=== PATIENT | male | born 1955 | race Caucasian/White ===

== ENCOUNTER 2018-04-22 11:09 | Observation (INO) ==
--- NOTE | 2018-04-22 13:02 | ED ---
HPI General Chief Complaint: Syncope Stated Complaint: Fainting Time Seen by Provider: 04/22/18 12:37 Source: patient Mode of arrival: ambulatory Limitations: no limitations History of Present Illness HPI narrative: 63-year-old male poor historian presents emergency department for evaluation of multiple presyncopal and simple episodes over the last year. Says he was at his rehab facility today for his chronic neck and back pain when he had a presyncopal episode and he was advised to come to the emergency department for evaluation. Patient has chronic neck and back pain and follows neurosurgery, Dr. Plata, and [facility]. Patient has couple days ago he was in his driveway when he felt faint and collapsed likely hitting his head on the concrete. He does not know how long he was out. Currently he has no complaints. Denies headache, blurred vision, fever, chills, chest pain, abdominal pain. He has had multiple knee surgeries and believes this has caused neuropathy pain in his legs. Says he drinks 3-4 alcoholic drinks per week. Denies current tobacco use. Denies use of pain medications except for very sparingly. Says he follows Dr. Ceballos, cardiology and had a stress test within the last year. His primary care physician is Dr. Conner. Related Data Home Medications Medication Instructions Recorded Confirmed diltiazem HCl [Cardizem CD] 240 mg PO DAILY 04/22/18 04/22/18 gabapentin 600 mg PO BID 04/22/18 04/22/18 lisinopril-hydrochlorothiazide 0.5 - 1 tab PO DAILY 04/22/18 04/22/18 warfarin [Coumadin] 2.5 mg PO QPM 04/22/18 04/22/18 Allergies Allergy/AdvReac Type Severity Reaction Status Date / Time No Known Allergies Allergy NONE Uncoded 04/22/18 12:53 Review of Systems Except as stated in HPI: all other systems reviewed are negative FORMERLY [facility] Medical History Medical History Back pain (Acute) Chronic pain (Acute) Hypertension (Acute) Neck pain (Acute) Neuropathy (Acute) Pulmonary embolism (Acute) Family History Family History Other Family hx of lung cancer Social History Social History Substance History: No History of Abuse Second Hand Smoke Exposure: No Smoking Status: Never smoker How Often Do You Have a Drink Containing Alcohol: 4 or more times a week Recent Travel in [facility] within the Last 8 Weeks: No Recent Out of Country Travel within the Last 8 Weeks: No Course Initial Documented Vital Signs Temperature 97.5 F L 04/22/18 11:32 Pulse Rate 104 H 04/22/18 11:32 Respiratory Rate 18 04/22/18 11:32 Blood Pressure 101/55 L 04/22/18 11:32 Pulse Oximetry 97 04/22/18 11:32 Last Documented Vital Signs Temperature 97.5 F L 04/22/18 11:32 Pulse Rate 88 04/22/18 13:48 Respiratory Rate 16 04/22/18 13:48 Blood Pressure 94/53 L 04/22/18 13:48 Pulse Oximetry 97 04/22/18 13:48 Medical Decision Making MDM Narrative Medical decision making narrative: 63-year-old male presents emergency department with a 6 month history of presyncopal and syncopal episodes. Says that over the last couple days he has had increased falls and had an episode of syncope for which he had a unknown period of unconsciousness. He has hit his head multiple times and he does take Coumadin for previous history of PE. Labs and imaging studies ordered. Note that his blood pressure is on the low side and he becomes tachycardic upon standing. Says that he had an MRI of his neck for evaluation of his chronic neck pain within the last year but does not mention any issues regarding his carotid arteries. Says that he follows Dr. Plata for neurosurgery regarding his low back and neck pain. Denies current tobacco use. Drinks approximately 4 times weekly, 3-4 drinks per day. I recommend patient be admitted for observation. I am concerned about his frequent falls on Coumadin therapy. Patient also has peripheral neuropathy which he says makes him unsteady on his feet. The period time for his unsteadiness has been 6 months and patient believes it is related to his neck pain. He denies neck or back surgeries previously. He does follow Dr. Plata however, has not addressed this concern with him. He has addressed this concern with his primary care physician but it is unknown if he has had imaging related to this problem. He says that he had an MRI of his neck to evaluate for his neck pain but again does not mention evaluation of his carotids or any other workup. I spoke with Dr. Burnett who agreed to this admission. Differential Diagnosis Differential Diagnosis: ICH, dehydration, anemia Lab Data Result diagrams: 04/22/18 13:20 04/22/18 13:20 Lab Results 04/22/18 04/22/18 04/22/18 Range/Units 13:20 13:20 13:20 WBC 6.8 (4.0-11.0) th/mm3 RBC 3.66 L (4.50-5.90) mil/mm3 Hgb 12.5 L (13.0-17.0) gm/dL Hct 36.8 L (39.0-51.0) % MCV 100.6 H (80.0-100.0) fL MCH 34.1 H (27.0-34.0) pg MCHC 33.9 (32.0-36.0) % RDW 15.7 (11.6-17.2) % Plt Count 222 (150-450) th/mm3 MPV 8.9 (7.0-11.0) fL Neut % (Auto) 68.2 (16.0-70.0) % Lymph % (Auto) 20.0 (9.0-44.0) % [place] % (Auto) 11.0 H (0.0-8.0) % Eos % (Auto) 0.5 (0.0-4.0) % Baso % (Auto) 0.3 (0.0-2.0) % Neut # (Auto) 4.6 (1.8-7.7) th/mm3 Lymph # (Auto) 1.4 (1.0-4.8) th/mm3 [place] # (Auto) 0.7 (0.0-0.9) th/mm3 Eos # (Auto) 0.0 (0.0-0.4) th/mm3 Baso # (Auto) 0.0 (0.0-0.2) th/mm3 WBC Differential . Differential Comment Auto diff final PT 20.8 H (9.8-11.6) sec INR 2.1 Ratio APTT 40.2 H (24.3-30.1) sec Sodium 132 L (136-145) meq/L Potassium 3.8 (3.5-5.1) meq/L Chloride 95 L (98-107) meq/L Carbon Dioxide 24.9 (21.0-32.0) meq/L Anion Gap 12 (5-15) meq/L BUN 28 H (7-18) mg/dL Creatinine 1.86 H (0.60-1.30) mg/dL Estimated GFR 37 L (>89) mL/min Random Glucose 110 H (74-106) mg/dL Calcium 9.1 (8.5-10.1) mg/dL Magnesium 2.1 (1.5-2.5) mg/dL Total Bilirubin 0.9 (0.2-1.0) mg/dL AST 155 H (15-37) U/L ALT 207 H (12-78) U/L Alkaline Phosphatase 81 (45-117) U/L Ammonia (11-32) mcmol/L Total Protein 7.3 (6.4-8.2) g/dL Albumin 3.4 (3.4-5.0) g/dL Urine Color (Yellw/Straw) Urine Clarity (Clear) Urine pH (5.0-8.5) Ur Specific [place] (1.002-1.035) Urine Protein (Neg-Trace) mg/dL Urine Glucose (UA) (Negative) mg/dL Urine Ketones (Negative) mg/dL Urine Occult Blood (Negative) Urine Nitrate (Negative) Urine Bilirubin (Negative) Urine Urobilinogen (Less than 2) mg/dL Ur Leukocyte Esterase (Negative) Urine RBC (0-3) /hpf Urine WBC (0-5) /hpf Ur Squamous Epith Cells (0-5) /hpf Calcium Oxalate Crystal (None) /hpf Urine Bacteria (None) /hpf Hyaline Casts (0-3) /lpf Urine Mucus (Occasional) /lpf Micro UA Comment Urine Culture Comments 04/22/18 04/22/18 Range/Units 13:20 15:35 WBC (4.0-11.0) th/mm3 RBC (4.50-5.90) mil/mm3 Hgb (13.0-17.0) gm/dL Hct (39.0-51.0) % MCV (80.0-100.0) fL MCH (27.0-34.0) pg MCHC (32.0-36.0) % RDW (11.6-17.2) % Plt Count (150-450) th/mm3 MPV (7.0-11.0) fL Neut % (Auto) (16.0-70.0) % Lymph % (Auto) (9.0-44.0) % [place] % (Auto) (0.0-8.0) % Eos % (Auto) (0.0-4.0) % Baso % (Auto) (0.0-2.0) % Neut # (Auto) (1.8-7.7) th/mm3 Lymph # (Auto) (1.0-4.8) th/mm3 [place] # (Auto) (0.0-0.9) th/mm3 Eos # (Auto) (0.0-0.4) th/mm3 Baso # (Auto) (0.0-0.2) th/mm3 WBC Differential Differential Comment PT (9.8-11.6) sec INR Ratio APTT (24.3-30.1) sec Sodium (136-145) meq/L Potassium (3.5-5.1) meq/L Chloride (98-107) meq/L Carbon Dioxide (21.0-32.0) meq/L Anion Gap (5-15) meq/L BUN (7-18) mg/dL Creatinine (0.60-1.30) mg/dL Estimated GFR (>89) mL/min Random Glucose (74-106) mg/dL Calcium (8.5-10.1) mg/dL Magnesium (1.5-2.5) mg/dL Total Bilirubin (0.2-1.0) mg/dL AST (15-37) U/L ALT (12-78) U/L Alkaline Phosphatase (45-117) U/L Ammonia 18 (11-32) mcmol/L Total Protein (6.4-8.2) g/dL Albumin (3.4-5.0) g/dL Urine Color [place] (Yellw/Straw) Urine Clarity Cloudy H (Clear) Urine pH 5.0 (5.0-8.5) Ur Specific [place] 1.015 (1.002-1.035) Urine Protein 30 H (Neg-Trace) mg/dL Urine Glucose (UA) 50 (Negative) mg/dL Urine Ketones Negative (Negative) mg/dL Urine Occult Blood Negative (Negative) Urine Nitrate Negative (Negative) Urine Bilirubin Negative (Negative) Urine Urobilinogen 4 or greater (Less than 2) mg/dL Ur Leukocyte Esterase Negative (Negative) Urine RBC 1 (0-3) /hpf Urine WBC 2 (0-5) /hpf Ur Squamous Epith Cells 1 (0-5) /hpf Calcium Oxalate Crystal Occasional H (None) /hpf Urine Bacteria Rare H (None) /hpf Hyaline Casts 28 (0-3) /lpf Urine Mucus Few H (Occasional) /lpf Micro UA Comment Culture not ind Urine Culture Comments Culture not ind Imaging Data Radiologist's impression: ITS Impressions Cervical Spine CT 04/22/18 12:51 CONCLUSION: 1. No acute bony fracture. 2. There are moderate degenerative changes throughout the cervical spine with disc degeneration and disc space narrowing at C5-6 and C6-7. 3. There is broad-based bulging at multiple levels with disc osteophyte complexes. 4. 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 Head CT 04/22/18 12:51 CONCLUSION: 1. No focal or acute intracranial hemorrhage. 2. Bilateral cortical atrophy, left greater than right. Chest X-Ray 04/22/18 12:54 CONCLUSION: No acute intrathoracic disease. Stable examination. Discharge Plan Discharge Disposition Patient Disposition: 30 Still Patient Discharge Condition Condition: Stable Discharge Details Discharge Problem: Syncope and collapse Physicians Team ED Provider: Carter Farrar ED Midlevel Provider: Aurea Velazco Primary Care Provider: Johny Conner Attending Provider: Sue Tapia Discharge Interventions Interventions: Vital Signs Last Done: 04/22/18 13:48 Status ED Status: Admitted Observation Patient
[2018-04-22 13:52] LABS: Baso % (Auto) 0.3 % (0.0-2.0); Eos % (Auto) 0.5 % (0.0-4.0); Hematocrit 36.8 % (39.0-51.0); Hemoglobin 12.5 gm/dL (13.0-17.0); Lymph # (Auto) 1.4 th/mm3 (1.0-4.8); Mean Corpuscular HGB Conc 33.9 % (32.0-36.0); Mean Corpuscular Hemoglobin 34.1 pg (27.0-34.0); Mean Corpuscular Volume 100.6 fL (80.0-100.0); Mean Platelet Volume 8.9 fL (7.0-11.0); Mono # (Auto) 0.7 th/mm3 (0.0-0.9); Neut # (Auto) 4.6 th/mm3 (1.8-7.7); Neut % (Auto) 68.2 % (16.0-70.0); Platelet Count 222 th/mm3 (150-450); Red Blood Count 3.66 mil/mm3 (4.50-5.90); Red Cell Distribution Width 15.7 % (11.6-17.2); White Blood Count 6.8 th/mm3 (4.0-11.0)
[2018-04-22 14:00] LABS: Activated Partial Thrombo Time 40.2 sec (24.3-30.1); INR 2.1 Ratio; Prothrombin Time 20.8 sec (9.8-11.6)
--- NOTE | 2018-04-22 14:03 | XR ---
EXAM DATE: 04/22/2018 1:49 PM EDT AGE/SEX: 63 years / Male INDICATIONS: Syncope with shortness of breath. CLINICAL DATA: This is the patient's initial encounter. Patient reports that signs and symptoms have been present for 1 day and indicates a pain score of 0/10. MEDICAL/SURGICAL HISTORY: None. None. COMPARISON: [facility] [place], CHEST PA & LAT, 09/15/2012. . FINDINGS: A single AP view of the chest demonstrates the lungs to be symmetrically aerated without evidence of mass, infiltrate or effusion. The cardiomediastinal contours are unremarkable. Osseous structures a re intact. CONCLUSION: No acute intrathoracic disease. Stable examination. Electronically signed by: Zion No MD 04/22/2018 2:02 PM EDT
--- NOTE | 2018-04-22 14:09 | CT ---
EXAM DATE: 04/22/2018 2:00 PM EDT AGE/SEX: 63 years / Male INDICATIONS: Syncope episode, multiple fall. Head and neck pain. CLINICAL DATA: This is the patient's initial encounter. Patient reports that signs and symptoms have been present for 1 day and indicates a pain score of 5/10. MEDICAL/SURGICAL HISTORY: None. None. RADIATION DOSE: 36.92 CTDI (mGy) COMPARISON: No prior exams available for comparison. TECHNIQUE: CT of the head without contrast. Using automated exposure control and adjustment of the mA and/or kV according to patient size, radiation dose was kept as low as reasonably achievable to ob tain optimal diagnostic quality images. DICOM format image data is available electronically for revi ew and comparison. FINDINGS: Cerebrum: The ventricles are normal for age. There is bilateral cortical atrophy, left greater than right. No evidence of midline shift, mass lesion, hemorrhage or acute infarction. No extraaxial flu id collections are seen. Posterior Fossa: The cerebellum and brainstem are intact. The 4th ventricle is midline. The cerebe llopontine angle is unremarkable. Extracranial: The visualized portion of the orbits is intact. Skull: The calvaria is intact. No evidence of skull fracture. CONCLUSION: 1. No focal or acute intracranial hemorrhage. 2. Bilateral cortical atrophy, left greater than right. Electronically signed by: Zion No MD 04/22/2018 2:08 PM EDT
[2018-04-22 14:10] LABS: Alkaline Phosphatase 81 U/L (45-117); Total Protein 7.3 g/dL (6.4-8.2)
[2018-04-22 14:27] LABS: Alanine Aminotransferase 207 U/L (12-78); Albumin 3.4 g/dL (3.4-5.0); Anion Gap 12 meq/L (5-15); Aspartate Aminotransferase 155 U/L (15-37); Blood Urea Nitrogen 28 mg/dL (7-18); Calcium 9.1 mg/dL (8.5-10.1); Carbon Dioxide 24.9 meq/L (21.0-32.0); Chloride 95 meq/L (98-107); Glomerular Filtration Rate 37 mL/min (>89); Glucose,Random 110 mg/dL (74-106); Magnesium 2.1 mg/dL (1.5-2.5); Potassium 3.8 meq/L (3.5-5.1); Sodium 132 meq/L (136-145)
--- NOTE | 2018-04-22 14:48 | CT ---
EXAM DATE: 04/22/2018 2:32 PM EDT AGE/SEX: 63 years / Male INDICATIONS: Syncope episode, with multiple falls. Neck and head pain. CLINICAL DATA: This is the patient's initial encounter. Patient reports that signs and symptoms have been present for 1 day and indicates a pain score of 5/10. MEDICAL/SURGICAL HISTORY: None. None. RADIATION DOSE: 19.98 CTDI (mGy) COMPARISON: No prior exams available for comparison. TECHNIQUE: Contiguous axial images were obtained using helical multirow detector technique. The vol umetric data was post-processed with multiplanar reconstruction in oblique axial, sagittal, and coron al planes. Using automated exposure control and adjustment of the mA and/or kV according to patient s ize, radiation dose was kept as low as reasonably achievable to obtain optimal diagnostic quality mateus ges. DICOM format image data is available electronically for review and comparison. FINDINGS: Vertebrae: Normal vertebral body height. There are primary degenerative changes throughout the cervi hemalatha spine. There is disc space narrowing at C5-6 and C6-7. No acute bony fracture is demonstrated. Alignment: Normal. No subluxation. C2-3: The bony spinal canal is normal in size. No evidence of disc bulge or herniation. The neural foramina are bilaterally patent. C3-4: Broad-based bulging with disc osteophyte complex. Mild narrowing of the neural foramina bilate rally. C4-5: The bony spinal canal is normal in size. No evidence of disc bulge or herniation. Mild narrow ing of the right neural foramina. The left neural foramina is patent. C5-6: Broad-based bulging with disc osteophyte complex. There is some narrowing of the right neural foramina. The left neural foramina appears patent. There is bilateral facet arthritis. C6-7: Diffuse broad-based bulging with disc osteophyte complex. There is mild narrowing of the neura l foramina bilaterally, left greater than right. There is bilateral facet arthritis. C7-T1: The bony spinal canal is normal in size. No evidence of disc bulge or herniation. The neura l foramina are bilaterally patent. Bilateral facet arthritis. CONCLUSION: 1. No acute bony fracture. 2. There are moderate degenerative changes throughout the cervical spine with disc degeneration and disc space narrowing at C5-6 and C6-7. 3. There is broad-based bulging at multiple levels with disc osteophyte complexes. 4. 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 Electronically signed by: Zion No MD 04/22/2018 2:47 PM EDT
--- NOTE | 2018-04-22 16:16 | ED ---
HPI General Chief Complaint: Syncope Stated Complaint: Fainting Time Seen by Provider: 04/22/18 12:37 Source: patient Mode of arrival: ambulatory Limitations: no limitations Related Data Home Medications Medication Instructions Recorded Confirmed diltiazem HCl [Cardizem CD] 240 mg PO DAILY 04/22/18 04/22/18 gabapentin 600 mg PO BID 04/22/18 04/22/18 lisinopril-hydrochlorothiazide 0.5 - 1 tab PO DAILY 04/22/18 04/22/18 warfarin [Coumadin] 2.5 mg PO QPM 04/22/18 04/22/18 Allergies Allergy/AdvReac Type Severity Reaction Status Date / Time No Known Allergies Allergy NONE Uncoded 04/22/18 12:53 FORMERLY [facility] Medical History Medical History Back pain (Acute) Chronic pain (Acute) Neck pain (Acute) Neuropathy (Acute) Pulmonary embolism (Acute) Social History Social History Substance History: No History of Abuse Second Hand Smoke Exposure: No Smoking Status: Never smoker How Often Do You Have a Drink Containing Alcohol: 4 or more times a week Recent Travel in [facility] within the Last 8 Weeks: No Recent Out of Country Travel within the Last 8 Weeks: No Immunization History Tetanus Immunization: <5 Years Hx Influenza Vaccine This Season: Unable to Assess Course Initial Documented Vital Signs Temperature 97.5 F L 04/22/18 11:32 Pulse Rate 104 H 04/22/18 11:32 Respiratory Rate 18 04/22/18 11:32 Blood Pressure 101/55 L 04/22/18 11:32 Pulse Oximetry 97 04/22/18 11:32 Last Documented Vital Signs Temperature 97.5 F L 04/22/18 11:32 Pulse Rate 88 04/22/18 13:48 Respiratory Rate 16 04/22/18 13:48 Blood Pressure 94/53 L 04/22/18 13:48 Pulse Oximetry 97 04/22/18 13:48 Medical Decision Making LOIDA Attestation LOIDA supervised visit: Yes Attestation: I, Dr. Farrar, have reviewed the advance practice practitioner's documentation and am in agreement, met with the patient face to face, made the diagnosis, and the medical decision making was done by me. *My assessment and Findings: This patient's had multiple months of presyncopal episodes and syncope. Workup here is reviewed. He will be a 23 hour observation on telemetry for evaluation of syncope which has been recurrent. Patient does have chronic pain but that seems unchanged. Lab Data Result diagrams: 04/22/18 13:20 04/22/18 13:20 Lab Results 04/22/18 04/22/18 04/22/18 Range/Units 13:20 13:20 13:20 WBC 6.8 (4.0-11.0) th/mm3 RBC 3.66 L (4.50-5.90) mil/mm3 Hgb 12.5 L (13.0-17.0) gm/dL Hct 36.8 L (39.0-51.0) % MCV 100.6 H (80.0-100.0) fL MCH 34.1 H (27.0-34.0) pg MCHC 33.9 (32.0-36.0) % RDW 15.7 (11.6-17.2) % Plt Count 222 (150-450) th/mm3 MPV 8.9 (7.0-11.0) fL Neut % (Auto) 68.2 (16.0-70.0) % Lymph % (Auto) 20.0 (9.0-44.0) % [place] % (Auto) 11.0 H (0.0-8.0) % Eos % (Auto) 0.5 (0.0-4.0) % Baso % (Auto) 0.3 (0.0-2.0) % Neut # (Auto) 4.6 (1.8-7.7) th/mm3 Lymph # (Auto) 1.4 (1.0-4.8) th/mm3 [place] # (Auto) 0.7 (0.0-0.9) th/mm3 Eos # (Auto) 0.0 (0.0-0.4) th/mm3 Baso # (Auto) 0.0 (0.0-0.2) th/mm3 WBC Differential . Differential Comment Auto diff final PT 20.8 H (9.8-11.6) sec INR 2.1 Ratio APTT 40.2 H (24.3-30.1) sec Sodium 132 L (136-145) meq/L Potassium 3.8 (3.5-5.1) meq/L Chloride 95 L (98-107) meq/L Carbon Dioxide 24.9 (21.0-32.0) meq/L Anion Gap 12 (5-15) meq/L BUN 28 H (7-18) mg/dL Creatinine 1.86 H (0.60-1.30) mg/dL Estimated GFR 37 L (>89) mL/min Random Glucose 110 H (74-106) mg/dL Calcium 9.1 (8.5-10.1) mg/dL Magnesium 2.1 (1.5-2.5) mg/dL Total Bilirubin 0.9 (0.2-1.0) mg/dL AST 155 H (15-37) U/L ALT 207 H (12-78) U/L Alkaline Phosphatase 81 (45-117) U/L Ammonia (11-32) mcmol/L Total Protein 7.3 (6.4-8.2) g/dL Albumin 3.4 (3.4-5.0) g/dL 04/22/18 Range/Units 13:20 WBC (4.0-11.0) th/mm3 RBC (4.50-5.90) mil/mm3 Hgb (13.0-17.0) gm/dL Hct (39.0-51.0) % MCV (80.0-100.0) fL MCH (27.0-34.0) pg MCHC (32.0-36.0) % RDW (11.6-17.2) % Plt Count (150-450) th/mm3 MPV (7.0-11.0) fL Neut % (Auto) (16.0-70.0) % Lymph % (Auto) (9.0-44.0) % [place] % (Auto) (0.0-8.0) % Eos % (Auto) (0.0-4.0) % Baso % (Auto) (0.0-2.0) % Neut # (Auto) (1.8-7.7) th/mm3 Lymph # (Auto) (1.0-4.8) th/mm3 [place] # (Auto) (0.0-0.9) th/mm3 Eos # (Auto) (0.0-0.4) th/mm3 Baso # (Auto) (0.0-0.2) th/mm3 WBC Differential Differential Comment PT (9.8-11.6) sec INR Ratio APTT (24.3-30.1) sec Sodium (136-145) meq/L Potassium (3.5-5.1) meq/L Chloride (98-107) meq/L Carbon Dioxide (21.0-32.0) meq/L Anion Gap (5-15) meq/L BUN (7-18) mg/dL Creatinine (0.60-1.30) mg/dL Estimated GFR (>89) mL/min Random Glucose (74-106) mg/dL Calcium (8.5-10.1) mg/dL Magnesium (1.5-2.5) mg/dL Total Bilirubin (0.2-1.0) mg/dL AST (15-37) U/L ALT (12-78) U/L Alkaline Phosphatase (45-117) U/L Ammonia 18 (11-32) mcmol/L Total Protein (6.4-8.2) g/dL Albumin (3.4-5.0) g/dL Imaging Data Radiologist's impression: ITS Impressions Cervical Spine CT 04/22/18 12:51 CONCLUSION: 1. No acute bony fracture. 2. There are moderate degenerative changes throughout the cervical spine with disc degeneration and disc space narrowing at C5-6 and C6-7. 3. There is broad-based bulging at multiple levels with disc osteophyte complexes. 4. 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 Head CT 04/22/18 12:51 CONCLUSION: 1. No focal or acute intracranial hemorrhage. 2. Bilateral cortical atrophy, left greater than right. Chest X-Ray 04/22/18 12:54 CONCLUSION: No acute intrathoracic disease. Stable examination. Discharge Plan Discharge Disposition Patient Disposition: 30 Still Patient Discharge Details Discharge Problem: Syncope and collapse Physicians Team ED Provider: Carter Farrar ED Midlevel Provider: Aurea Velazco Primary Care Provider: Johny Conner Rxs /Orders / Referrals /Forms Prescriptions: No Action gabapentin 600 mg Tablet 600 mg PO BID RF: 0 diltiazem HCl [Cardizem CD] 240 mg Capsule,Extended Release 24hr 240 mg PO DAILY RF: 0 warfarin [Coumadin] 2.5 mg Tablet 2.5 mg PO QPM RF: 0 lisinopril-hydrochlorothiazide 10-12.5 mg Tablet 0.5 - 1 tab PO DAILY RF: 0 Status ED Status: With Doctor
[2018-04-22 16:35] LABS: Bacteria,Urine Rare /hpf; Bilirubin,Urine Negative (Negative); Calcium Oxalate Crystals,Urine Occasional /hpf; Clarity,Urine Cloudy (Clear); Color,Urine Amber (Yellw/Straw); Glucose,Urine (UA) 50 mg/dL (Negative); Hyaline Casts,Urine 28 /lpf (0-3); Leukocyte Esterase,Urine Negative (Negative); Mucus,Urine Few /lpf (Occasional); Nitrite,Urine Negative (Negative); Specific Gravity,Urine 1.015 (1.002-1.035); Squamous Epithelial Cell,Urine 1 /hpf (0-5); Urobilinogen,Urine 4 or Greater mg/dL (Less than 2)
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
[2018-04-22] MEDS ORDERED: Sod Chloride 0.9% Inj 1,000 ML IV.SIG ONE (17:03)
[2018-04-22] MEDS ORDERED: Haloperidol Inj 5 MG/ML Ampul IV.PUSH PRN (17:40)
[2018-04-22 21:23] LABS: Amphetamine Screen,Urine Neg (Neg); Barbiturate Screen,Urine Neg (Neg); Cannabinoid Screen,Urine Pos (Neg); Cocaine Screen,Urine Neg (Neg)
[2018-04-22 21:29] LABS: Opiate Screen,Urine Neg (Neg)
[2018-04-22] MEDS: Gabapentin 300 MG Capsule PO SCH (21:32)
--- NOTE | 2018-04-23 06:40 | MB ---
cc: Johny Zuñiga MD, PhD DATE: 04/23/2018 REASON FOR CONSULTATION: Syncope, history of cervical fracture. HISTORY OF PRESENT ILLNESS: Mr. Jett is a very nice 63-year-old man who has a history of cervical spine fracture. He states he has been having several episodes of loss of consciousness, usually upon standing. He gets lightheaded. One episode, he got out of his truck, it was hot, felt lightheaded, lost consciousness for a fairly brief period of time. He also feels weak in his legs, difficulty walking. He has neuropathy, relates numbness in his feet, trouble walking up steps. He states he has a history of cervical fracture diagnosed in the past, not requiring any type of surgical treatment. 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 According to the chart, atrial fibrillation. CURRENT MEDICATIONS: 1. Cardizem 240 mg daily. 2. Romazicon p.r.n. 3. Gabapentin 600 mg b.i.d. 4. Haldol p.r.n. 5. HydroDIURIL 6.25 mg daily. 6. Lisinopril 5 mg daily. 7. Ativan as needed. 8. Thiamine 100 mg b.i.d. 9. Coumadin 2.5 mg daily. NEUROLOGICAL EXAMINATION: VITAL SIGNS: Blood pressure is 93/59, pulse is 81, respiratory rate is 18, temperature 98 degrees. HIGHER CORTICAL FUNCTIONS: Normal. CRANIAL NERVES: 2-12 are normal in detail. MOTOR EXAM: He has got 5/5 strength in all groups in both upper extremities. He does have weakness in the lower extremities rated at 4/5 proximally and distally. Reflexes are symmetric with no Babinski. Sensory exam is diminished in both lower extremities. IMAGING STUDIES: CT of the brain: Atrophy, no acute change present. CT cervical spine: No acute fracture or degenerative disk disease is seen at C5-C6 and C6-C7. Broad-based disk bulging at multiple levels. No significant stenosis is identified. LABORATORY DATA: The white count of 6800; hemoglobin 12.5: hematocrit 36.8%; platelet count 222,000. PT 20.8, INR 2.1, APTT 40.2. Sodium is 132, potassium 3.8, chloride 95, CO2 of 24.9, BUN is 28, creatinine 1.86, GFR is 37, glucose 110, AST 155, ALT is 207. Urinalysis: The pH is 5, specific gravity 1.015, protein is 30, glucose is 50. IMPRESSION: 1. Syncope. The history suggests orthostatic hypotension. This could be due to neuropathy, possibly with autonomic involvement, possible dehydration as well based on his BUN and creatinine. 2. Cervical fracture. Rule out cervical myelopathy. RECOMMENDATIONS: We will get an MRI of the brain, as well as MRI cervical spine. Check orthostatic blood pressure and pulse. We will get a carotid ultrasound and echocardiogram. Johny Zuñiga MD, PhD JOHNATHAN/KAYA , 06:06 AM , 06:39 AM
[2018-04-23] MEDS: Gabapentin 300 MG Capsule PO SCH ×2 (08:54→20:30)
[2018-04-23] MEDS: dilTIAZem CD 240 MG Capsule PO SCH (08:54)
[2018-04-23] MEDS: Lisinopril 5 MG Tablet PO SCH ×2 (08:57→08:59)
[2018-04-23] MEDS ORDERED: hydroCHLOROthiazide 25 MG Tablet PO SCH (09:00)
[2018-04-23] MEDS ORDERED: Gadobenate Dimeglumine PF Inj 20 ML VIAL (for RAD MRI) IVCONTRAST ONE (09:30)
[2018-04-23 09:31] LABS: Anion Gap 11 meq/L (5-15); Aspartate Aminotransferase 114 U/L (15-37); Blood Urea Nitrogen 26 mg/dL (7-18); Calcium 9.7 mg/dL (8.5-10.1); Carbon Dioxide 24.4 meq/L (21.0-32.0); Chloride 101 meq/L (98-107); Glomerular Filtration Rate 67 mL/min (>89); Glucose,Random 79 mg/dL (74-106); Potassium 3.5 meq/L (3.5-5.1); Sodium 136 meq/L (136-145)
[2018-04-23 09:32] LABS: Alanine Aminotransferase 175 U/L (12-78); Baso % (Auto) 0.7 % (0.0-2.0); Eos # (Auto) 0.1 th/mm3 (0.0-0.4); Eos % (Auto) 1.6 % (0.0-4.0); Hematocrit 33.2 % (39.0-51.0); Hemoglobin 11.3 gm/dL (13.0-17.0); Lymph % (Auto) 26.1 % (9.0-44.0); Mean Corpuscular HGB Conc 34.1 % (32.0-36.0); Mean Corpuscular Hemoglobin 34.4 pg (27.0-34.0); Mean Platelet Volume 8.3 fL (7.0-11.0); Mono # (Auto) 0.4 th/mm3 (0.0-0.9); Mono % (Auto) 9.5 % (0.0-8.0); Neut # (Auto) 2.4 th/mm3 (1.8-7.7); Neut % (Auto) 62.1 % (16.0-70.0); Platelet Count 186 th/mm3 (150-450); Red Blood Count 3.29 mil/mm3 (4.50-5.90); Red Cell Distribution Width 15.7 % (11.6-17.2); White Blood Count 3.8 th/mm3 (4.0-11.0)
[2018-04-23 09:34] LABS: Alkaline Phosphatase 74 U/L (45-117)
--- NOTE | 2018-04-23 09:50 | MR ---
EXAM DATE: 04/23/2018 9:42 AM EDT AGE/SEX: 63 years / Male INDICATIONS: Pain. Chronic neck pain. CLINICAL DATA: This is the patient's initial encounter. Patient reports that signs and symptoms have been present for 4 - 6 months and indicates a pain score of 5/10. MEDICAL/SURGICAL HISTORY: Hypertension. Total knee replacement, left. Total knee replacement, right. COMPARISON: [facility] [place], CT CERVICAL SPINE W/O CONTRAST, 04/22/2018. . TECHNIQUE: Multiplanar, multisequence MRI examination of the cervical spine was performed without co ntrast. FINDINGS: Vertebrae: Normal vertebral body height. Homogeneous marrow signal. Alignment: Normal. Cord: Normal configuration and signal. Post Fossa: The cerebellar tonsils are normal in position. C2-C3: The thecal sac has a normal configuration. There is no evidence of disc herniation or spinal canal stenosis. The neural foramina are patent bilaterally. C3-C4: Mild broad-based protrusion abuts the ventral thecal sac without canal stenosis. Mild bilater al neural foraminal narrowing. C4-C5: The thecal sac has a normal configuration. There is no evidence of disc herniation or spinal canal stenosis. Uncovertebral spurring causes mild to moderate bilateral neural foraminal narrowing. C5-C6: Mild broad-based protrusion slightly eccentric the left abuts the ventral thecal sac. No gladys l stenosis. Uncovertebral spurring causes moderate to severe bilateral neural foraminal narrowing gre ater on the left C6-C7: Mild broad-based protrusion abuts the ventral thecal sac without canal stenosis. Uncovertebra l spurring causes moderate bilateral neural foraminal narrowing. C7-T1: No epidural impressions seen. CONCLUSION: 1. Multilevel protrusions without canal stenosis. 2. Uncovertebral spurring at multiple levels causing neural foraminal narrowing as described above. Electronically signed by: Elkin Kim MD 04/23/2018 9:49 AM EDT
--- NOTE | 2018-04-23 09:53 | MR ---
EXAM DATE: 04/23/2018 9:47 AM EDT AGE/SEX: 63 years / Male INDICATIONS: Frequent falls. Syncope. CLINICAL DATA: This is the patient's initial encounter. Patient reports that signs and symptoms have been present for 4 - 6 months and indicates a pain score of 0/10. MEDICAL/SURGICAL HISTORY: Hypertension. Total knee replacement, left. Total knee replacement, right. COMPARISON: . TECHNIQUE: Multiplanar, multisequence examination of the brain was performed without and with 16 ml M ultihance (gadobenate) contrast as a single exam dose. FINDINGS: Cerebrum: No acute infarction, midline shift or mass effect. No extra axial fluid collections. Ventr icles are mildly prominent consistent with atrophy. White Matter: No significant signal abnormalities are seen in the white matter. Posterior Fossa: The cerebellum and brainstem are intact. The 4th ventricle is midline. The cerebel lopontine angle is unremarkable. The cerebellar tonsils are normal in position. Diffusion Imaging: No focal areas of restricted diffusion are seen. No evidence of acute infarction . Extracranial: The visualized portions of the orbits and paranasal sinuses are unremarkable. Post Contrast: No abnormal areas of parenchymal or dural enhancement. No evidence of blood-brain ba rrier breakdown. CONCLUSION: 1. Cerebral atrophy. 2. No acute intracranial abnormality. 3. No acute infarction. Electronically signed by: Elkin Kim MD 04/23/2018 9:51 AM EDT
--- NOTE | 2018-04-23 10:17 | US ---
EXAM DATE: 04/23/2018 10:09 AM EDT AGE/SEX: 63 years / Male INDICATIONS: Syncope. CLINICAL DATA: This is the patient's initial encounter. Patient reports that signs and symptoms have been present for 1 day and indicates a pain score of 0/10. MEDICAL/SURGICAL HISTORY: . Hypertension. Neuropathy. Pulmonary embolism. . Bilateral knee r eplacement. COMPARISON: No prior exams available for comparison. VELOCITY PARAMETERS: ICA/CCA Ratio: Right 0.8 , Left 1.0 ICA: Right 67 cm/sec, Left 85 cm/sec CCA: Right 79 cm/sec, Left 90 cm/sec ECA: Right 67 cm/sec, Left 49 cm/sec Vertebral: Right 36 cm/sec antegrade, Left 47 cm/sec antegrade FINDINGS: Right Carotid: Mild arteriosclerotic plaque is visualized.The waveforms are within normal limits. Left Carotid: Mild arteriosclerotic plaque is visualized. The waveforms are within normal limits. Other: None. CONCLUSION: No hemodynamically significant stenosis in either carotid artery Electronically signed by: Elkin Kim MD 04/23/2018 10:16 AM EDT
[2018-04-23 10:35] LABS: Hepatitis A IgM Antibody Nonreactive (Nonreactive); Hepatitits B Surface Antigen Nonreactive (Nonreactive)
--- NOTE | 2018-04-23 10:43 | ECG ---
Date Performed: 04/22/2018 Time Performed: 13:56:57 PTAGE: 63 years EKG: Sinus rhythm NORMAL ECG PREVIOUS TRACING : 09/14/2012 02.33 No significant change from previous tracing noted. DOCTOR: Soy Hook Interpretating Date/Time 04/23/2018 10:42:09
--- NOTE | 2018-04-23 12:58 | P.PNADD ---
Addendum to Inpatient Note Reason for Addendum: Additional Documentation Additional information: Please see the resident H/P for additional information regarding the patients history. Patient was admitted for syncope and pre-syncope which sounds like may be chronic for the past several months with continued increasing debility. Patient reports no changes since admission. C/o Back and neck pain and also continued dizziness when standing. Denies CP, SOB, changes in bowels/bladder. Vital Signs Temp Pulse Resp BP Pulse Ox 04/23/18 09:00 93/63 L 95 04/23/18 08:00 97.5 F L 78 18 93/63 L 04/23/18 03:02 98.4 F 73 18 94/50 L 98 04/22/18 23:30 98.1 F 81 18 93/59 L 97 04/22/18 20:30 75 98 04/22/18 20:00 97.3 F L 89 18 95/62 L 97 04/22/18 17:13 94 H 16 112/70 97 04/22/18 13:48 88 16 94/53 L 97 04/22/18 13:36 96 Intake and Output 04/22/18 04/23/18 04/23/18 22:59 06:59 14:59 Other: Date of Last Bowel Movement 04/22/[address] 04/22/18 12:51 CONCLUSION: 1. No acute bony fracture. 2. There are moderate degenerative changes throughout the cervical spine with disc degeneration and disc space narrowing at C5-6 and C6-7. 3. There is broad-based bulging at multiple levels with disc osteophyte complexes. 4. 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 Head CT 04/22/18 12:51 CONCLUSION: 1. No focal or acute intracranial hemorrhage. 2. Bilateral cortical atrophy, left greater than right. Chest X-Ray 04/22/18 12:54 CONCLUSION: No acute intrathoracic disease. Stable examination. Carotid Doppler Study 04/23/18 00:00 CONCLUSION: No hemodynamically significant stenosis in either carotid artery Cervical Spine MRI 04/23/18 00:00 CONCLUSION: 1. Multilevel protrusions without canal stenosis. 2. Uncovertebral spurring at multiple levels causing neural foraminal narrowing as described above. Head MRI 04/23/18 00:00 CONCLUSION: 1. Cerebral atrophy. 2. No acute intracranial abnormality. 3. No acute infarction. Active Medications Diltiazem HCl (Cardizem Cd 24hr) 240 mg PO DAILY [facility] Last Admin: 04/23/18 08:54 Dose: 240 mg Flumazenil (Romazecon Inj) 0.2 mg IV.PUSH Q1M PRN PRN Reason: OVERSEDATION Gabapentin (Neurontin) 600 mg PO BID [facility] Last Admin: 04/23/18 08:54 Dose: 600 mg Haloperidol Lactate (Haldol Inj) 1 mg IV.PUSH Q15M PRN PRN Reason: for severe agitation Hydrochlorothiazide (Hydrodiuril) 6.25 mg PO DAILY [facility] Lisinopril (Prinivil) 5 mg PO DAILY [facility] Last Admin: 04/23/18 08:57 Dose: 5 mg Lorazepam (Ativan) 1 mg PO Q4H PRN PRN Reason: for CIWA 8-10 Lorazepam (Ativan) 2 mg PO Q2H PRN PRN Reason: for CIWA 11-14 Lorazepam (Ativan Inj) 2 mg IV.PUSH Q2H PRN PRN Reason: for CIWA 11-14 Lorazepam (Ativan Inj) 2 mg IV.PUSH Q15M PRN PRN Reason: for CIWA > 20 Lorazepam (Ativan Inj) 1 mg IV.PUSH Q4H PRN PRN Reason: for CIWA 8-10 Lorazepam (Ativan Inj) 2 mg IV.PUSH Q1H PRN PRN Reason: for CIWA 15-20 Sodium Chloride (Ns Flush) 2 ml IV.FLUSH BID [facility] Last Admin: 04/22/18 21:33 Dose: 2 ml Sodium Chloride (Ns Flush) 2 ml IV.FLUSH UNSCH PRN PRN Reason: FLUSH AFTER USING IV ACCESS Thiamine HCl (Vitamin B1) 100 mg PO BID [facility] Last Admin: 04/23/18 08:55 Dose: 100 mg Warfarin Sodium (Coumadin) 2.5 mg PO DAILY@1600 [facility] Last Admin: 04/22/18 21:36 Dose: 2.5 mg Abnormal Lab Results 04/22/18 04/22/18 04/22/18 13:20 13:20 13:20 WBC 6.8 RBC 3.66 L Hgb 12.5 L Hct 36.8 L MCV 100.6 H MCH 34.1 H MCHC 33.9 RDW 15.7 Plt Count 222 MPV 8.9 Neut % (Auto) 68.2 Lymph % (Auto) 20.0 [place] % (Auto) 11.0 H Eos % (Auto) 0.5 Baso % (Auto) 0.3 Neut # (Auto) 4.6 Lymph # (Auto) 1.4 [place] # (Auto) 0.7 Eos # (Auto) 0.0 Baso # (Auto) 0.0 WBC Differential . Differential Comment Auto diff final PT 20.8 H INR 2.1 APTT 40.2 H Sodium 132 L Potassium 3.8 Chloride 95 L Carbon Dioxide 24.9 Anion Gap 12 BUN 28 H Creatinine 1.86 H Estimated GFR 37 L Random Glucose 110 H Calcium 9.1 Magnesium 2.1 Total Bilirubin 0.9 AST 155 H ALT 207 H Alkaline Phosphatase 81 Ammonia Total Protein 7.3 Albumin 3.4 Urine Color Urine Clarity Urine pH Ur Specific [place] Urine Protein Urine Glucose (UA) Urine Ketones Urine Occult Blood Urine Nitrate Urine Bilirubin Urine Urobilinogen Ur Leukocyte Esterase Urine RBC Urine WBC Ur Squamous Epith Cells Calcium Oxalate Crystal Urine Bacteria Hyaline Casts Urine Mucus Micro UA Comment Urine Culture Comments Urine Opiates Screen Ur Barbiturates Screen Ur Amphetamines Screen U Benzodiazepines Scrn Urine Cocaine Screen U Cannabinoids Screen Serum Alcohol Hepatitis A IgM Ab Hep Bs Antigen Hep B Core IgM Ab Hep C IgG Ab 04/22/18 04/22/18 04/22/18 13:20 13:20 15:35 WBC RBC Hgb Hct MCV MCH MCHC RDW Plt Count MPV Neut % (Auto) Lymph % (Auto) [place] % (Auto) Eos % (Auto) Baso % (Auto) Neut # (Auto) Lymph # (Auto) [place] # (Auto) Eos # (Auto) Baso # (Auto) WBC Differential Differential Comment PT INR APTT Sodium Potassium Chloride Carbon Dioxide Anion Gap BUN Creatinine Estimated GFR Random Glucose Calcium Magnesium Total Bilirubin AST ALT Alkaline Phosphatase Ammonia 18 Total Protein Albumin Urine Color [place] Urine Clarity Cloudy H Urine pH 5.0 Ur Specific [place] 1.015 Urine Protein 30 H Urine Glucose (UA) 50 Urine Ketones Negative Urine Occult Blood Negative Urine Nitrate Negative Urine Bilirubin Negative Urine Urobilinogen 4 or greater Ur Leukocyte Esterase Negative Urine RBC 1 Urine WBC 2 Ur Squamous Epith Cells 1 Calcium Oxalate Crystal Occasional H Urine Bacteria Rare H Hyaline Casts 28 Urine Mucus Few H Micro UA Comment Culture not ind Urine Culture Comments Culture not ind Urine Opiates Screen Ur Barbiturates Screen Ur Amphetamines Screen U Benzodiazepines Scrn Urine Cocaine Screen U Cannabinoids Screen Serum Alcohol Less than 3 Hepatitis A IgM Ab Hep Bs Antigen Hep B Core IgM Ab Hep C IgG Ab 04/22/18 04/23/18 04/23/18 15:35 07:30 07:30 WBC RBC Hgb Hct MCV MCH MCHC RDW Plt Count MPV Neut % (Auto) Lymph % (Auto) [place] % (Auto) Eos % (Auto) Baso % (Auto) Neut # (Auto) Lymph # (Auto) [place] # (Auto) Eos # (Auto) Baso # (Auto) WBC Differential Differential Comment PT INR APTT Sodium 136 Potassium 3.5 Chloride 101 Carbon Dioxide 24.4 Anion Gap 11 BUN 26 H Creatinine 1.11 Estimated GFR 67 L Random Glucose 79 Calcium 9.7 Magnesium Total Bilirubin 0.8 AST 114 H ALT 175 H Alkaline Phosphatase 74 Ammonia Total Protein 7.0 Albumin 3.0 L Urine Color Urine Clarity Urine pH Ur Specific [place] Urine Protein Urine Glucose (UA) Urine Ketones Urine Occult Blood Urine Nitrate Urine Bilirubin Urine Urobilinogen Ur Leukocyte Esterase Urine RBC Urine WBC Ur Squamous Epith Cells Calcium Oxalate Crystal Urine Bacteria Hyaline Casts Urine Mucus Micro UA Comment Urine Culture Comments Urine Opiates Screen Neg Ur Barbiturates Screen Neg Ur Amphetamines Screen Neg U Benzodiazepines Scrn Neg Urine Cocaine Screen Neg U Cannabinoids Screen Pos Serum Alcohol Hepatitis A IgM Ab Nonreactive Hep Bs Antigen Nonreactive Hep B Core IgM Ab Nonreactive Hep C IgG Ab Reactive H 04/23/18 07:30 WBC 3.8 L RBC 3.29 L Hgb 11.3 L Hct 33.2 L MCV 101.0 H MCH 34.4 H MCHC 34.1 RDW 15.7 Plt Count 186 MPV 8.3 Neut % (Auto) 62.1 Lymph % (Auto) 26.1 [place] % (Auto) 9.5 H Eos % (Auto) 1.6 Baso % (Auto) 0.7 Neut # (Auto) 2.4 Lymph # (Auto) 1.0 [place] # (Auto) 0.4 Eos # (Auto) 0.1 Baso # (Auto) 0.0 WBC Differential . Differential Comment Auto diff final PT INR APTT Sodium Potassium Chloride Carbon Dioxide Anion Gap BUN Creatinine Estimated GFR Random Glucose Calcium Magnesium Total Bilirubin AST ALT Alkaline Phosphatase Ammonia Total Protein Albumin Urine Color Urine Clarity Urine pH Ur Specific [place] Urine Protein Urine Glucose (UA) Urine Ketones Urine Occult Blood Urine Nitrate Urine Bilirubin Urine Urobilinogen Ur Leukocyte Esterase Urine RBC Urine WBC Ur Squamous Epith Cells Calcium Oxalate Crystal Urine Bacteria Hyaline Casts Urine Mucus Micro UA Comment Urine Culture Comments Urine Opiates Screen Ur Barbiturates Screen Ur Amphetamines Screen U Benzodiazepines Scrn Urine Cocaine Screen U Cannabinoids Screen Serum Alcohol Hepatitis A IgM Ab Hep Bs Antigen Hep B Core IgM Ab Hep C IgG Ab GENERAL: awake, alert, no distress sitting in bed. SKIN: Warm and dry. HEAD: Atraumatic. Normocephalic. EYES: Pupils equal and round. No scleral icterus. No injection or drainage. ENT: No nasal bleeding or discharge. Mucous membranes pink and moist. NECK: Trachea midline. No JVD. CARDIOVASCULAR: Regular rate and rhythm. RESPIRATORY: No accessory muscle use. Clear to auscultation. Breath sounds equal bilaterally. GASTROINTESTINAL: Abdomen soft, non-tender, nondistended. Hepatic and splenic margins not palpable. MUSCULOSKELETAL: Extremities without clubbing, cyanosis, or edema. He has many areas of abrasions on his arms and legs and scattered ecchymosis. NEUROLOGICAL: Awake and alert. No obvious cranial nerve deficits. Motor grossly within normal limits. Five out of 5 muscle strength in the arms and legs. Normal speech. PSYCHIATRIC: Appropriate mood and affect; insight and judgment normal. AP Syncope -- sounds orthostatic --- this still has not been completed. Re- ordered again. Carotids negative, MRI brain wnl. Echo pending. Neurology consulted. Consider adding gentle IVF but patient is tolerating PO. Maybe secondary to severe neuropathy. PT evaluation pending to assess patients functional status. Afib - stable -- continue the cardizem. Other BP meds held due to hypotension and syncopal symptoms. He is on warfarin. This is risky with his h/o falls. Will monitor closely. Patient seen and dw the resident team -- Dr. Burnett and Dr. River and Dr. Rubio
[2018-04-23] MEDS: LORazepam 1 MG Tablet PO PRN (20:35)
[2018-04-24] MEDS: LORazepam 1 MG Tablet PO PRN (01:34)
[2018-04-24 05:54] LABS: INR 1.5 Ratio; Prothrombin Time 15.1 sec (9.8-11.6)
[2018-04-24 05:56] LABS: Hematocrit 33.2 % (39.0-51.0); Hemoglobin 11.2 gm/dL (13.0-17.0); Mean Corpuscular HGB Conc 33.7 % (32.0-36.0); Mean Corpuscular Hemoglobin 33.9 pg (27.0-34.0); Mean Corpuscular Volume 100.8 fL (80.0-100.0); Mean Platelet Volume 8.2 fL (7.0-11.0); Platelet Count 206 th/mm3 (150-450); Red Cell Distribution Width 15.5 % (11.6-17.2); White Blood Count 3.8 th/mm3 (4.0-11.0)
[2018-04-24 06:11] LABS: Calcium 9.5 mg/dL (8.5-10.1); Carbon Dioxide 25.9 meq/L (21.0-32.0); Potassium 3.7 meq/L (3.5-5.1)
[2018-04-24] MEDS: Gabapentin 300 MG Capsule PO SCH ×2 (08:23→20:46)
[2018-04-24] MEDS: dilTIAZem CD 240 MG Capsule PO SCH (08:27)
[2018-04-24] MEDS ORDERED: Sod Chloride 0.9% Inj 1,000 ML IV.SIG ONE (11:31)
--- NOTE | 2018-04-24 11:53 | P.PNNEU ---
Subjective Subjective Comments: No acute events reported Active Medications: Active Medications Generic Name Dose Route Start Last Admin Trade Name Freq PRN Reason Stop Dose Admin Diltiazem HCl 240 mg 04/23/18 09:00 04/24/18 08:27 Cardizem Cd 24hr PO 240 mg DAILY [facility] Administration Flumazenil 0.2 mg 04/22/18 17:40 Romazecon Inj IV.PUSH Q1M PRN OVERSEDATION Gabapentin 600 mg 04/22/18 21:00 04/24/18 08:23 Neurontin PO 600 mg BID [facility] Administration Haloperidol Lactate 1 mg 04/22/18 17:40 Haldol Inj IV.PUSH Q15M PRN for severe agitation Hydrochlorothiazide 6.25 mg 04/23/18 09:00 Hydrodiuril PO DAILY [facility] Potassium Chloride/Sodium Chloride 1,000 mls @ 100 mls/hr 04/23/18 14:00 06/04 11:38 Ns + Kcl 20 Meq Inj IV.CONT 100 mls/hr .Q10H [facility] Administration Lisinopril 5 mg 04/23/18 09:00 04/23/18 08:57 Prinivil PO 5 mg DAILY [facility] Administration Lorazepam 1 mg 04/22/18 17:40 04/24/18 01:34 Ativan PO 1 mg Q4H PRN Administration for CIWA 8-10 Lorazepam 2 mg 04/22/18 17:40 Ativan PO Q2H PRN for CIWA 11-14 Lorazepam 2 mg 04/22/18 17:40 Ativan Inj IV.PUSH Q2H PRN for CIWA 11-14 Lorazepam 2 mg 04/22/18 17:40 Ativan Inj IV.PUSH Q15M PRN for CIWA > 20 Lorazepam 1 mg 04/22/18 17:40 Ativan Inj IV.PUSH Q4H PRN for CIWA 8-10 Lorazepam 2 mg 04/22/18 17:40 Ativan Inj IV.PUSH Q1H PRN for CIWA 15-20 Sodium Chloride 2 ml 04/22/18 21:00 04/24/18 08:29 Ns Flush IV.FLUSH Not Given BID [facility] Sodium Chloride 2 ml 04/22/18 17:15 Ns Flush IV.FLUSH UNSCH PRN FLUSH AFTER USING IV ACCESS Thiamine HCl 100 mg 04/22/18 21:00 04/24/18 08:24 Vitamin B1 PO 100 mg BID [facility] Administration Warfarin Sodium 2.5 mg 04/22/18 18:00 04/23/18 20:30 Coumadin PO 2.5 mg DAILY@1600 [facility] Administration Allergies/Adverse Reactions: Allergies Allergy/AdvReac Type Severity Reaction Status Date / Time No Known Allergies Allergy NONE Uncoded 04/22/18 12:53 Physical Exam Vital signs: Vital Signs 04/23/18 12:00 04/23/18 19:35 04/23/18 23:14 Temperature 97.7 F 98.2 F 97.9 F Pulse Rate 95 H 72 85 Respiratory Rate 20 18 18 Blood Pressure 93/57 L 92/68 L 92/58 L Pulse Oximetry 96 97 96 04/24/18 03:57 04/24/18 08:00 Temperature 98.0 F 98.6 F Pulse Rate 94 H 97 H Respiratory Rate 18 17 Blood Pressure 85/57 L 82/59 L Pulse Oximetry 96 100 Intake & Output 04/23/18 04/24/18 04/24/18 18:59 06:59 18:59 Intake Total 1000 / 1000 Output Total 450 / 450 Balance 550 / 550 Intake: IV 1000 / 1000 NS + KCl 20 mEq Inj 1,000 ML @ 1000 / 1000 100 mls/hr IV.CONT .Q10H [facility] Rx #:[id number] Output: Urine 450 / 450 - Routine Neurological Exam alert, oriented Speech normal CN intact MOTOR 5/5 BUE . Objective Radiology Results: MRI brain normal MRI cervical spine mu multilevel spondylosis but no stenosis and no spinal cord compression carotid us--no significant carotid stenosis Laboratory Results - last 24 hr 04/24/18 04/24/18 04/24/18 05:25 05:25 05:25 WBC 3.8 L RBC 3.30 L Hgb 11.2 L Hct 33.2 L MCV 100.8 H MCH 33.9 MCHC 33.7 RDW 15.5 Plt Count 206 MPV 8.2 PT 15.1 H INR 1.5 Sodium 135 L Potassium 3.7 Chloride 100 Carbon Dioxide 25.9 Anion Gap 9 BUN 27 H Creatinine 1.15 Estimated GFR 64 L Random Glucose 82 Calcium 9.5 Review/Management - Diagnosis (1) Syncopal episodes Code(s): R55 - Syncope and collapse Status: Acute Current Visit: Yes - Review/Management Plan: syncope--suspect related to orthostatic hypotension If it persists, consider midodrine or florinef MRI cervical spine is stable with no sign of cervical myelopathy
--- NOTE | 2018-04-24 12:37 | P.PNFP ---
Subjective Interval history: Patient reports no issues overnight. Continues to complain of pain in the neck and back and dizziness with standing. Denies CP/SOB, GI issues or problems with urination. He is not shakey but is a little more agitated today. He is frustrated Results - Labs Result diagrams: 04/24/18 05:25 04/24/18 05:25 Abnormal lab results 04/24/18 04/24/18 04/24/18 Range/Units 05:25 05:25 05:25 WBC 3.8 L (4.0-11.0) th/mm3 RBC 3.30 L (4.50-5.90) mil/mm3 Hgb 11.2 L (13.0-17.0) gm/dL Hct 33.2 L (39.0-51.0) % MCV 100.8 H (80.0-100.0) fL PT 15.1 H (9.8-11.6) sec Sodium 135 L (136-145) meq/L BUN 27 H (7-18) mg/dL Estimated GFR 64 L (>89) mL/min Short CBC 04/24/18 Range/Units 05:25 WBC 3.8 L (4.0-11.0) th/mm3 Hgb 11.2 L (13.0-17.0) gm/dL Hct 33.2 L (39.0-51.0) % Plt Count 206 (150-450) th/mm3 BMP 04/24/18 05:25 Sodium 135 L Potassium 3.7 Chloride 100 Carbon Dioxide 25.9 BUN 27 H Creatinine 1.15 Calcium 9.5 Physical Exam Vital signs: Vital Signs 04/23/18 19:35 04/23/18 23:14 04/24/18 03:57 Temperature 98.2 F 97.9 F 98.0 F Pulse Rate 72 85 94 H Respiratory Rate 18 18 18 Blood Pressure 92/68 L 92/58 L 85/57 L Pulse Oximetry 97 96 96 04/24/18 08:00 Temperature 98.6 F Pulse Rate 97 H Respiratory Rate 17 Blood Pressure 82/59 L Pulse Oximetry 100 Intake & Output 04/23/18 04/24/18 04/24/18 18:59 06:59 18:59 Intake Total 1000 / 1000 Output Total 450 / 450 Balance 550 / 550 Intake: IV 1000 / 1000 NS + KCl 20 mEq Inj 1,000 ML @ 1000 / 1000 100 mls/hr IV.CONT .Q10H [facility] Rx #:[id number] Output: Urine 450 / 450 Narrative: GENERAL: SKIN: Warm and dry. HEAD: Atraumatic. Normocephalic. EYES: Pupils equal and round. No scleral icterus. No injection or drainage. ENT: No nasal bleeding or discharge. Mucous membranes pink and moist. NECK: Trachea midline. No JVD. CARDIOVASCULAR: Regular rate and rhythm. RESPIRATORY: No accessory muscle use. Clear to auscultation. Breath sounds equal bilaterally. GASTROINTESTINAL: Abdomen soft, non-tender, nondistended. Hepatic and splenic margins not palpable. MUSCULOSKELETAL: Extremities without clubbing, cyanosis, or edema. No obvious deformities. NEUROLOGICAL: Awake and alert. No obvious cranial nerve deficits. Motor grossly within normal limits. Five out of 5 muscle strength in the arms and legs. Normal speech. PSYCHIATRIC: Appropriate mood and affect; insight and judgment normal. - Constitutional no acute distress, obese, agitated - Routine HEENT Exam Head: Present: normocephalic, atraumatic Eye: Present: PERRL, conjunctivae pink. Absent: conjunctival icterus, scleral injection ENT: Present: mucous membranes moist - Routine Neck Exam Present: supple. Absent: lymphadenopathy - Routine Respiratory Exam Present: CTA bilaterally. Absent: accessory muscle use, wheezes, crackles - Routine Cardiovascular Exam Present: RRR, S1, S2 - Routine Abdominal Exam Present: soft, normoactive bowel sounds. Absent: tenderness, distended, rebound , guarding - Routine Extremities Exam Present: pulses intact. Absent: cyanosis, clubbing, edema, calf tenderness, palpable cord - Routine Skin Exam Present: petechiae, scars, ecchymosis - Routine Neurological Exam Present: oriented X3, normal speech. Absent: tremors, asterixis - Detailed Neurological Exam: Coma Scale Eye Opening: Spontaneous Verbal Response: Oriented - Routine Psychiatric Exam Present: normal affect, normal thought process Assessment and Plan - Assessment (1) Syncope and collapse Code(s): R55 - Syncope and collapse Status: Acute Plan: Patient with multiple falls, presyncopal, and syncopal episodes over the past 6 months. Likely orthostatic in nature. Still appears to be a little dehydrated. Will bolus now, continue IVF. Echo pending. If echo normalizes and hydration status is good and pt still symptomatic consider pharmacologic treatment. -Consult neurology, appreciate recommendations --- workup thus far unrevealing. -Orthostatic BPs -- 93/65 pulse 81 lying and 73/64 pulse 117 standing. (2) Alcohol use Code(s): Z78.9 - Other specified health status Status: Chronic Plan: Patient admits to drinking "2 alcoholic beverages" with his gabapentin at night to sleep. CBC shows hemoglobin of 12.5 with macrocytosis. Serum alcohol is than 3 LFTs are elevated (see plan below) -Will place on CIWA protocol as a precaution -Thiamine vitamin twice daily -Will escalate care as needed (3) LFT elevation Code(s): R94.5 - Abnormal results of liver function studies Status: Acute Plan: Have trended down somewhat. Hepatitis panel was positive for Hep C. Viral load and genotype pending. DW patient and made him aware of his diagnosis. He has tattoos and states he was a "child in the 60's" so exposure is possible from that time. Will follow up labs. Will need outpatient fu with GI for treatment. (4) HTN (hypertension) Code(s): I10 - Essential (primary) hypertension Status: Chronic Plan: Patient has been hypotensive since admission. Continue to hold his BP medications (5) Neuropathy Code(s): G62.9 - Polyneuropathy, unspecified Status: Chronic Plan: Patient with neuropathy of unknown etiology -Continue at home medication of gabapentin 600 mg p.o. twice daily (6) Atrial fibrillation Code(s): I48.91 - Unspecified atrial fibrillation Status: Chronic Plan: Continue at home medication: -diltiazem 240 mg p.o. daily -he is also on warfarin at home and today his INR did dip but was in a good ranges yesterday with no changes - will continue his current dose and repeat INR in the am (7) Nutrition, metabolism, and development symptoms Code(s): R63.8 - Other symptoms and signs concerning food and fluid intake Status: Acute Plan: Fluids: tolerating PO Electrolytes: monitor and replete as needed Nutrition: heart-healthy diet GI Prophylaxis: None indicated at this time (8) DVT prophylaxis Status: Acute Plan: DVT Prophylaxis: Early ambulation. Continue at home Coumadin 2.5mg p.o. daily - Assessment and Plan Discussed Condition With: The resident team - Dr. River
[2018-04-25 07:23] LABS: INR 1.5 Ratio; Prothrombin Time 15.3 sec (9.8-11.6)
[2018-04-25 07:40] LABS: Aspartate Aminotransferase 110 U/L (15-37); Blood Urea Nitrogen 17 mg/dL (7-18); Calcium 9.3 mg/dL (8.5-10.1); Carbon Dioxide 23.8 meq/L (21.0-32.0); Glomerular Filtration Rate Greater Than 89 mL/min (>89); Glucose,Random 81 mg/dL (74-106)
[2018-04-25 07:42] LABS: Alanine Aminotransferase 163 U/L (12-78)
[2018-04-25 08:10] LABS: Anion Gap 9 meq/L (5-15); Chloride 109 meq/L (98-107); Potassium 3.9 meq/L (3.5-5.1); Sodium 142 meq/L (136-145)
[2018-04-25 08:56] LABS: Alkaline Phosphatase 68 U/L (45-117); Total Protein 6.5 g/dL (6.4-8.2)
[2018-04-25] MEDS: Gabapentin 300 MG Capsule PO SCH ×2 (10:16→20:58)
[2018-04-25] MEDS: dilTIAZem CD 240 MG Capsule PO SCH (10:16)
--- NOTE | 2018-04-25 10:33 | P.PNFP ---
Subjective Interval history: Patient seen and examined this morning. He states that he is doing okay. He still having lightheadedness upon standing and sometimes with sitting forward in bed. No fevers or chills, no chest pain, shortness of breath , no abdominal pain. He asked questions about his plan going forward. Is concerned about how much his hospitalization is costing him and the cost of possibly going to an SNF/rehab. He also inquired whether he could wear a neck brace to help prevent his neck pain. <Luli Burnett G - 04/25/18 11:33> Results - Labs Result diagrams: 04/24/18 05:25 04/25/18 06:08 <Sue Tapia R - 04/25/18 16:40> Abnormal lab results 04/24/18 04/25/18 04/25/18 Range/Units 21:53 06:08 06:08 PT 15.3 H (9.8-11.6) sec Chloride 109 H D (98-107) meq/L POC Glucose 112 H (68-110) mg/dl AST 110 H (15-37) U/L ALT 163 H (12-78) U/L Albumin 3.0 L (3.4-5.0) g/dL BMP 04/25/18 06:08 Sodium 142 Potassium 3.9 Chloride 109 H D Carbon Dioxide 23.8 BUN 17 Creatinine 0.84 Calcium 9.3 Liver Function 04/25/18 Range/Units 06:08 Total Bilirubin 0.6 (0.2-1.0) mg/dL AST 110 H (15-37) U/L ALT 163 H (12-78) U/L Alkaline Phosphatase 68 (45-117) U/L Albumin 3.0 L (3.4-5.0) g/dL <Sue Tapia R - 04/25/18 16:40> Abnormal lab results 04/24/18 04/25/18 04/25/18 Range/Units 21:53 06:08 06:08 PT 15.3 H (9.8-11.6) sec Chloride 109 H D (98-107) meq/L POC Glucose 112 H (68-110) mg/dl AST 110 H (15-37) U/L ALT 163 H (12-78) U/L Albumin 3.0 L (3.4-5.0) g/dL BMP 04/25/18 06:08 Sodium 142 Potassium 3.9 Chloride 109 H D Carbon Dioxide 23.8 BUN 17 Creatinine 0.84 Calcium 9.3 Liver Function 04/25/18 Range/Units 06:08 Total Bilirubin 0.6 (0.2-1.0) mg/dL AST 110 H (15-37) U/L ALT 163 H (12-78) U/L Alkaline Phosphatase 68 (45-117) U/L Albumin 3.0 L (3.4-5.0) g/dL <Luli Burnett G - 04/25/18 10:33> Physical Exam Vital signs: Vital Signs 04/24/18 20:00 04/25/18 00:36 04/25/18 04:00 Temperature 97.6 F 97.5 F L 97.6 F Pulse Rate 79 73 73 Respiratory Rate 18 17 18 Blood Pressure 97/73 L 96/65 L 91/65 L Pulse Oximetry 97 98 04/25/18 08:00 04/25/18 08:01 04/25/18 11:35 Temperature 97.2 F L 97.4 F L Pulse Rate 75 90 95 H Respiratory Rate 18 20 Blood Pressure 94/72 L 110/80 Pulse Oximetry 100 96 04/25/18 12:50 04/25/18 16:00 Temperature 97.8 F Pulse Rate 82 Respiratory Rate 18 Blood Pressure 100/60 Pulse Oximetry 98 Intake & Output 04/24/18 04/25/18 04/25/18 18:59 06:59 18:59 Intake Total 1999 / 1999 3000 / 3000 Output Total 1500 / 1500 600 / 600 Balance -1500 / -1500 1400 / 1400 3000 / 3000 Intake: IV 1999 / 2000 3000 / 3000 NS + KCl 20 mEq Inj 1,000 ML @ 2000 / 2000 1000 / 1000 100 mls/hr IV.CONT .Q10H [facility] Rx #:[id number] Output: Urine 1500 / 1500 600 / 600 Other: # Voids 2 <Sue Tapia - 04/25/18 16:40> Vital Signs 04/24/18 12:00 04/24/18 16:00 04/24/18 20:00 Temperature 97.4 F L 97.6 F 97.6 F Pulse Rate 76 74 79 Respiratory Rate 20 18 18 Blood Pressure 94/64 L 95/52 L 97/73 L Pulse Oximetry 96 98 04/25/18 00:36 04/25/18 04:00 04/25/18 08:00 Temperature 97.5 F L 97.6 F 97.2 F L Pulse Rate 73 73 75 Respiratory Rate 17 18 18 Blood Pressure 96/65 L 91/65 L 94/72 L Pulse Oximetry 97 98 100 Intake & Output 04/24/18 04/25/18 04/25/18 18:59 06:59 18:59 Intake Total 1999 Output Total 1500 / 1500 600 / 600 Balance -1500 / -1500 1400 / 1400 1999 Intake: IV 1999 NS + KCl 20 mEq Inj 1,000 ML @ 1999 100 mls/hr IV.CONT .Q10H [facility] Rx #:[id number] Output: Urine 1500 / 1500 600 / 600 Other: # Voids 2 <Luli Burnett - 04/25/18 10:33> Narrative: GENERAL: Overweight white male sitting up in bed reading, no acute distress SKIN: Warm and dry. Extensive ecchymoses over bilateral UEs and LEs. HEAD: Atraumatic. Normocephalic. EYES: No scleral icterus. No injection or drainage. ENT: No nasal bleeding or discharge. Mucous membranes pink and moist. NECK: Trachea midline. No JVD. CARDIOVASCULAR: Regular rate and rhythm. RESPIRATORY: No accessory muscle use. Clear to auscultation. Breath sounds equal bilaterally. GASTROINTESTINAL: Abdomen soft, non-tender, nondistended. Hepatic and splenic margins not palpable. MUSCULOSKELETAL: Extremities without clubbing, cyanosis, or edema. No obvious deformities. NEUROLOGICAL: Awake and alert. No obvious cranial nerve deficits. Motor grossly within normal limits. Normal speech. PSYCHIATRIC: Appropriate mood and affect; insight and judgment normal. <Luli Burnett - 04/25/18 11:33> Assessment and Plan - Assessment (1) Syncope and collapse Code(s): R55 - Syncope and collapse Status: Acute (2) LFT elevation Code(s): R94.5 - Abnormal results of liver function studies Status: Acute (3) Alcohol use Code(s): Z78.9 - Other specified health status Status: Chronic (4) HTN (hypertension) Code(s): I10 - Essential (primary) hypertension Status: Chronic (5) Neuropathy Code(s): G62.9 - Polyneuropathy, unspecified Status: Chronic (6) Atrial fibrillation Code(s): I48.91 - Unspecified atrial fibrillation Status: Chronic (7) Nutrition, metabolism, and development symptoms Code(s): R63.8 - Other symptoms and signs concerning food and fluid intake Status: Acute (8) DVT prophylaxis Status: Acute <Sue Tapia Morelia - 04/25/18 16:40> (1) Syncope and collapse Code(s): R55 - Syncope and collapse Status: Acute Plan: Patient with multiple falls, presyncopal, and syncopal episodes over the past 6 months. Likely orthostatic in nature. Continuing IVF. Echo pending. Will start pharmacologic treatment despite echo still pending. -Consult neurology, appreciate recommendations --- workup thus far unrevealing. -Orthostatic BPs -- 93/65 pulse 81 lying and 73/64 pulse 117 standing. -Due to persistent low BPs will start Midodrine per Neurology's recs. -Midodrine 10mg TID during daytime hours when patient is upright (0700, 1200 , 1700) (2) LFT elevation Code(s): R94.5 - Abnormal results of liver function studies Status: Acute Plan: Have trended down somewhat. Hepatitis panel was positive for Hep C. Viral load and genotype pending. DW patient and made him aware of his diagnosis on 04/24. He has tattoos and states he was a "child in the 60's" so exposure is possible from that time. Will follow up labs. Will need outpatient fu with GI for treatment. (3) Alcohol use Code(s): Z78.9 - Other specified health status Status: Chronic Plan: Patient admits to drinking "2 alcoholic beverages" with his gabapentin at night to sleep. CBC shows hemoglobin of 12.5 with macrocytosis. Serum alcohol is than 3 LFTs are elevated (see plan below) -Placed on CIWA protocol as a precaution, d/c'd due to scores of 0 -Thiamine vitamin twice daily -Will escalate care as needed (4) HTN (hypertension) Code(s): I10 - Essential (primary) hypertension Status: Chronic Plan: Patient has been hypotensive since admission. Continue to hold his BP medications (5) Neuropathy Code(s): G62.9 - Polyneuropathy, unspecified Status: Chronic Plan: Patient with neuropathy of unknown etiology -Continue at home medication of gabapentin 600 mg p.o. twice daily (6) Atrial fibrillation Code(s): I48.91 - Unspecified atrial fibrillation Status: Chronic Plan: Continue at home medication: -diltiazem 240 mg p.o. daily -he is also on warfarin at home, INR has decreased to 1.5, not therapeutic. Due to this, will increase dose by about 15% today and repeat INR in the morning. new dose Warfarin 3mg qD (7) Nutrition, metabolism, and development symptoms Code(s): R63.8 - Other symptoms and signs concerning food and fluid intake Status: Acute Plan: Fluids: tolerating PO Electrolytes: monitor and replete as needed Nutrition: heart-healthy diet GI Prophylaxis: None indicated at this time (8) DVT prophylaxis Status: Acute Plan: DVT Prophylaxis: Early ambulation. Continue at home Coumadin. Dose increased as above <Luli Burnett - 04/25/18 15:46> - Assessment and Plan Discussed Condition With: Dr. Tapia, Dr. River <Luli Burnett - 04/25/18 15:57> Discharge Planning: Case management is considering SNF options <Luli Burnett - 04/25/18 15:57> - Attending Attestation The exam, history, and the medical decision-making described in the above note were completed with the assistance of the resident physician. I reviewed and agree with the findings presented. I attest that I had a [id number] encounter with the patient on the same day, and personally performed and documented my assessment and findings in the medical record. <Sue Tapia - 04/25/18 16:40>
--- NOTE | 2018-04-25 18:23 | ECHRPT ---
Indication: SOB CONCLUSIONS The left ventricular systolic function is normal with an estimated ejection fraction in the range of 60-65%. There is trace tricuspid valve regurgitation. Trivial pulmonary valve regurgitation. BP: / HR: Rhythm: Sinus MEASUREMENTS (Male / Female) Normal Values Technical Quality:Fair 2D ECHO LV Diastolic Diameter PLAX 5.3 cm 4.2 - 5.9 / 3.9 - 5.3 cm LV Systolic Diameter PLAX 3.8 cm IVS Diastolic Thickness 0.8 cm 0.6 - 1.0 / 0.6 - 0.9 cm LVPW Diastolic Thickness 0.8 cm 0.6 - 1.0 / 0.6 - 0.9 cm LV Relative Wall Thickness 0.3 RV Internal Dim ED PLAX 3.2 cm LVOT Diameter 2.0 cm LA Systolic Diameter LX 3.5 cm 3.0 - 4.0 / 2.7 - 3.8 cm LV Ejection Fraction MOD 4C 66.4 % LV Ejection Fraction 4C AL 66.5 % M-MODE Aortic Root Diameter MM 3.0 cm LA Systolic Diameter MM 3.5 cm LA Ao Ratio MM 1.2 AV Cusp Separation MM 2.5 cm DOPPLER AV Peak Velocity 132.0 cm/s AV Peak Gradient 7.0 mmHg LVOT Peak Velocity 107.0 cm/s LVOT Peak Gradient 4.6 mmHg AV Area Cont Eq pk 2.5 cm MV Area PHT 3.7 cm Mitral E Point Velocity 81.9 cm/s Mitral A Point Velocity 77.0 cm/s Mitral E to A Ratio 1.1 LV E' Lateral Velocity 12.8 cm/s Mitral E to LV E' Lateral Ratio 6.4 LV E' Septal Velocity 6.4 cm/s Mitral E to LV E' Septal Ratio 12.7 PV Peak Velocity 119.0 cm/s PV Peak Gradient 5.7 mmHg FINDINGS LEFT VENTRICLE The left ventricular systolic function is normal with an estimated ejection fraction in the range of 60-65%. Normal left ventricular size. Wall thickness is normal. No regional wall motion abnormalities are present. RIGHT VENTRICLE Normal right ventricular size and systolic function. LEFT ATRIUM The left atrial size is normal. RIGHT ATRIUM The right atrial size is normal. ATRIAL SEPTUM Normal atrial septal thickness AORTA The aortic root and proximal ascending aorta are normal in size on limited imaging. MITRAL VALVE Structurally normal mitral valve. No mitral valve stenosis or regurgitation. AORTIC VALVE Trileaflet aortic valve. No aortic valve stenosis or regurgitation. TRICUSPID VALVE Structurally normal tricuspid valve. There is trace tricuspid valve regurgitation. No tricuspid valve stenosis. PULMONARY VALVE The pulmonary valve is not well visualized. Trivial pulmonary valve regurgitation. VESSELS The inferior vena cava is normal in size. PERICARDIUM No pericardial effusion. Brown Mathis DO (Electronically Signed) Final Date:25 April 2018 18:22
[2018-04-26 09:16] LABS: Hematocrit 33.3 % (39.0-51.0); Hemoglobin 11.1 gm/dL (13.0-17.0); Mean Corpuscular HGB Conc 33.2 % (32.0-36.0); Mean Corpuscular Volume 102.2 fL (80.0-100.0); Platelet Count 277 th/mm3 (150-450); Red Blood Count 3.26 mil/mm3 (4.50-5.90); Red Cell Distribution Width 15.7 % (11.6-17.2); White Blood Count 3.3 th/mm3 (4.0-11.0)
[2018-04-26 09:17] LABS: INR 1.5 Ratio; Prothrombin Time 14.7 sec (9.8-11.6)
[2018-04-26 09:35] LABS: Anion Gap 11 meq/L (5-15); Aspartate Aminotransferase 118 U/L (15-37); Blood Urea Nitrogen 13 mg/dL (7-18); Calcium 9.7 mg/dL (8.5-10.1); Carbon Dioxide 21.7 meq/L (21.0-32.0); Chloride 108 meq/L (98-107); Glomerular Filtration Rate Greater Than 89 mL/min (>89); Glucose,Random 79 mg/dL (74-106); Potassium 3.7 meq/L (3.5-5.1); Sodium 141 meq/L (136-145)
[2018-04-26 09:36] LABS: Alanine Aminotransferase 173 U/L (12-78)
[2018-04-26 09:39] LABS: Alkaline Phosphatase 71 U/L (45-117); Total Protein 6.9 g/dL (6.4-8.2)
[2018-04-26] MEDS: dilTIAZem CD 240 MG Capsule PO SCH (10:10)
[2018-04-26] MEDS: Gabapentin 300 MG Capsule PO SCH (10:11)
--- NOTE | 2018-04-26 14:49 | P.PNFP ---
Subjective Interval history: Patient seen and examined this morning. He states that he feels a lot better since he started the midodrine yesterday evening. He is able to stand up and move about without feeling the lightheadedness that he had before. He demonstrated this to the team. At times he does feel slightly dizzy while standing, but it is tolerable. He is now able to do exercises standing up. No fevers or chills, no chest pain, no shortness of breath. Is eager to go home. He wants to continue his current rehab schedule as an outpatient. <Luli Burnett - 04/26/18 19:35> Results - Labs Result diagrams: 04/26/18 08:40 04/26/18 08:40 <Rayna Shell - 04/26/18 20:38> Abnormal lab results 04/26/18 04/26/18 04/26/18 Range/Units 08:40 08:40 08:40 WBC 3.3 L (4.0-11.0) th/mm3 RBC 3.26 L (4.50-5.90) mil/mm3 Hgb 11.1 L (13.0-17.0) gm/dL Hct 33.3 L (39.0-51.0) % MCV 102.2 H (80.0-100.0) fL PT 14.7 H (9.8-11.6) sec Chloride 108 H (98-107) meq/L AST 118 H (15-37) U/L ALT 173 H (12-78) U/L Albumin 3.0 L (3.4-5.0) g/dL Short CBC 04/26/18 Range/Units 08:40 WBC 3.3 L (4.0-11.0) th/mm3 Hgb 11.1 L (13.0-17.0) gm/dL Hct 33.3 L (39.0-51.0) % Plt Count 277 D (150-450) th/mm3 BMP 04/26/18 08:40 Sodium 141 Potassium 3.7 Chloride 108 H Carbon Dioxide 21.7 BUN 13 Creatinine 0.84 Calcium 9.7 Liver Function 04/26/18 Range/Units 08:40 Total Bilirubin 0.5 (0.2-1.0) mg/dL AST 118 H (15-37) U/L ALT 173 H (12-78) U/L Alkaline Phosphatase 71 (45-117) U/L Albumin 3.0 L (3.4-5.0) g/dL <Rayna Shell - 04/26/18 20:38> Abnormal lab results 04/26/18 04/26/18 04/26/18 Range/Units 08:40 08:40 08:40 WBC 3.3 L (4.0-11.0) th/mm3 RBC 3.26 L (4.50-5.90) mil/mm3 Hgb 11.1 L (13.0-17.0) gm/dL Hct 33.3 L (39.0-51.0) % MCV 102.2 H (80.0-100.0) fL PT 14.7 H (9.8-11.6) sec Chloride 108 H (98-107) meq/L AST 118 H (15-37) U/L ALT 173 H (12-78) U/L Albumin 3.0 L (3.4-5.0) g/dL Short CBC 04/26/18 Range/Units 08:40 WBC 3.3 L (4.0-11.0) th/mm3 Hgb 11.1 L (13.0-17.0) gm/dL Hct 33.3 L (39.0-51.0) % Plt Count 277 D (150-450) th/mm3 BMP 04/26/18 08:40 Sodium 141 Potassium 3.7 Chloride 108 H Carbon Dioxide 21.7 BUN 13 Creatinine 0.84 Calcium 9.7 Liver Function 04/26/18 Range/Units 08:40 Total Bilirubin 0.5 (0.2-1.0) mg/dL AST 118 H (15-37) U/L ALT 173 H (12-78) U/L Alkaline Phosphatase 71 (45-117) U/L Albumin 3.0 L (3.4-5.0) g/dL <Luli Burnett - 04/26/18 14:49> Physical Exam Vital signs: Vital Signs 04/25/18 23:59 04/26/18 00:00 04/26/18 04:00 Temperature 97.9 F 98.3 F Pulse Rate 66 56 L 80 Respiratory Rate 17 18 Blood Pressure 84/57 L 104/72 Pulse Oximetry 97 97 04/26/18 07:15 Temperature 98.1 F Pulse Rate 71 Respiratory Rate 16 Blood Pressure 108/69 Pulse Oximetry 98 Intake & Output 04/26/18 04/26/18 04/27/18 06:59 18:59 06:59 Intake Total 1420 / 1420 Output Total 500 / 500 Balance 920 / 920 Intake: IV 1000 / 1000 NS + KCl 20 mEq Inj 1,000 ML @ 1000 / 1000 100 mls/hr IV.CONT .Q10H DARRYL Rx #:[id number] Oral 420 / 420 Output: Urine 500 / 500 <DeannanixonRayna - 04/26/18 20:38> Vital Signs 04/25/18 16:00 04/25/18 16:15 04/25/18 20:00 Temperature 97.8 F 97.9 F Pulse Rate 75 65 Respiratory Rate 18 17 Blood Pressure 100/60 98/76 L Pulse Oximetry 98 97 04/25/18 23:59 04/26/18 00:00 04/26/18 04:00 Temperature 97.9 F 98.3 F Pulse Rate 66 56 L 80 Respiratory Rate 17 18 Blood Pressure 84/57 L 104/72 Pulse Oximetry 97 97 04/26/18 07:15 Temperature 98.1 F Pulse Rate 71 Respiratory Rate 16 Blood Pressure 108/69 Pulse Oximetry 98 Intake & Output 04/25/18 04/26/18 04/26/18 18:59 06:59 18:59 Intake Total 3960 / 3960 1420 / 1420 Output Total 1500 / 1500 500 / 500 Balance 2460 / 2460 920 / 920 Intake: IV 3000 / 3000 1000 / 1000 NS + KCl 20 mEq Inj 1,000 ML @ 1000 / 1000 1000 / 1000 100 mls/hr IV.CONT .Q10H DARRYL Rx #:[id number] Oral 960 / 960 420 / 420 Output: Urine 1500 / 1500 500 / 500 <LexLuli G - 04/26/18 14:49> Narrative: GENERAL: Overweight white male sitting at edge of bed, no acute distress SKIN: Warm and dry. Extensive ecchymoses over bilateral UEs and LEs. HEAD: Atraumatic. Normocephalic. EYES: No scleral icterus. No injection or drainage. ENT: No nasal bleeding or discharge. Mucous membranes pink and moist. NECK: Trachea midline. No JVD. CARDIOVASCULAR: Regular rate and rhythm. RESPIRATORY: No accessory muscle use. Clear to auscultation. Breath sounds equal bilaterally. GASTROINTESTINAL: Abdomen soft, non-tender, nondistended. Hepatic and splenic margins not palpable. MUSCULOSKELETAL: Extremities without clubbing, cyanosis, or edema. No obvious deformities. NEUROLOGICAL: Awake and alert. No obvious cranial nerve deficits. Motor grossly within normal limits. Normal speech. PSYCHIATRIC: Appropriate mood and affect; insight and judgment normal. <Luli Burnett - 04/26/18 19:35> Assessment and Plan - Assessment (1) Syncope and collapse Code(s): R55 - Syncope and collapse Status: Acute (2) LFT elevation Code(s): R94.5 - Abnormal results of liver function studies Status: Acute (3) Alcohol use Code(s): Z78.9 - Other specified health status Status: Chronic (4) HTN (hypertension) Code(s): I10 - Essential (primary) hypertension Status: Chronic (5) Neuropathy Code(s): G62.9 - Polyneuropathy, unspecified Status: Chronic (6) Atrial fibrillation Code(s): I48.91 - Unspecified atrial fibrillation Status: Chronic (7) Nutrition, metabolism, and development symptoms Code(s): R63.8 - Other symptoms and signs concerning food and fluid intake Status: Acute (8) DVT prophylaxis Status: Acute <DeannaRayna alicea - 04/26/18 20:38> (1) Syncope and collapse Code(s): R55 - Syncope and collapse Status: Acute Plan: Patient with multiple falls, presyncopal, and syncopal episodes over the past 6 months. Likely orthostatic in nature. Patient started on midodrine yesterday evening. He has experienced much improvement in his orthostatic symptoms. -Consult neurology, appreciate recommendations -echo with EF of 60-65% -Orthostatic BPs -- 93/65 pulse 81 lying and 73/64 pulse 117 standing. -Due to persistent low BPs will start Midodrine per Neurology's recs. -Midodrine 10mg TID during daytime hours when patient is upright (0700, 1200 , 1700) (2) LFT elevation Code(s): R94.5 - Abnormal results of liver function studies Status: Acute Plan: Have trended down somewhat. Hepatitis panel was positive for Hep C. Viral load and genotype pending. DW patient and made him aware of his diagnosis on 04/24. He has tattoos and states he was a "child in the 60's" so exposure is possible from that time. Will follow up labs. Will need outpatient fu with GI for treatment. (3) Alcohol use Code(s): Z78.9 - Other specified health status Status: Chronic Plan: Patient admits to drinking "2 alcoholic beverages" with his gabapentin at night to sleep. CBC shows hemoglobin of 12.5 with macrocytosis. Serum alcohol is than 3 LFTs are elevated (see plan below) -Placed on CIWA protocol as a precaution, d/c'd due to scores of 0 -Thiamine vitamin twice daily -Will escalate care as needed (4) HTN (hypertension) Code(s): I10 - Essential (primary) hypertension Status: Chronic Plan: Patient has been hypotensive since admission. Continue to hold his BP medications (5) Neuropathy Code(s): G62.9 - Polyneuropathy, unspecified Status: Chronic Plan: Patient with neuropathy of unknown etiology -Continue at home medication of gabapentin 600 mg p.o. twice daily (6) Atrial fibrillation Code(s): I48.91 - Unspecified atrial fibrillation Status: Chronic Plan: Continue at home medication: -diltiazem 240 mg p.o. daily -he is also on warfarin at home, INR has decreased to 1.5, not therapeutic. Patient does INR self checks at home and has been for the past 3 years readjusting his own medications. Will DC home on Warfarin 3mg qD (7) Nutrition, metabolism, and development symptoms Code(s): R63.8 - Other symptoms and signs concerning food and fluid intake Status: Acute Plan: Fluids: tolerating PO Electrolytes: monitor and replete as needed Nutrition: heart-healthy diet GI Prophylaxis: None indicated at this time (8) DVT prophylaxis Status: Acute Plan: DVT Prophylaxis: Early ambulation. Continue at home Coumadin. Dose increased as above <Luli Burnett - 04/26/18 19:24> - Assessment and Plan 63-year-old male with past medical history of A. fib diagnosed with orthostatic hypotension. Started on midodrine with great improvement. Discharged home today <Luli Burnett - 04/26/18 19:35> Discussed Condition With: Dr. River Dr. Shell <Luli Burnett - 04/26/18 19:35> Discharge Planning: Case management is considering SNF options <Luli Burnett - 04/26/18 14:49> - Attending Attestation Patient seen and examined today, discussed with Shy Burnett and Perico. I agree with assessment and management as documented and discussed with me. Pt reports he is feeling much better with midodrine. He states he has kept the curtain closed because he has been practicing standing all night. He feels ready to go home and reports he has all the equipment he needs for his safety. Discharge home today. <Rayna Shell - 04/26/18 20:38>
[2018-04-27 19:51] LABS: Hepatitis C RNA (PCR) log IUs 6.08 (0-1.18)
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
== END 2018-04-26 10:36 | disposition home or self-care (01) ==
LOC: NEDA 11:09 → NEPGCP 11:09 → NEPC 11:09 → NEPGCP 20:20
PROVIDERS: ADMIT Family Medicine; ATTEND Family Medicine
DX: H54.62 Unqualified visual loss, left eye, normal vision right eye; G89.29 Other chronic pain; Z98.41 Cataract extraction status, right eye; I10 Essential (primary) hypertension; I26.99 Other pulmonary embolism without acute cor pulmonale; M54.2 Cervicalgia; R55 Syncope and collapse; G62.9 Polyneuropathy, unspecified; I48.2 Chronic atrial fibrillation; M54.9 Dorsalgia, unspecified; Z79.01 Long term (current) use of anticoagulants; Z86.711 Personal history of pulmonary embolism; R29.6 Repeated falls; R79.89 Other specified abnormal findings of blood chemistry